=== PATIENT | male | born 1995 | race Caucasian/White ===

== ENCOUNTER 2019-03-08 14:56 | Emergency (ER) | payer MEDICAID, OTHER ==
[2019-03-08] MEDS ORDERED: Albuterol Nebulizer 2.5mg/3mL HHN ONE (15:18)
[2019-03-08] MEDS: Albuterol Nebulizer 2.5mg/3mL HHN ONE (15:20)
--- NOTE | 2019-03-08 17:31 | ED Physician Chart ---
ED Chief Complaint/HPI - Patient Information Date Seen:: 03/08/19 Time Seen:: 15:30 Chief Complaint:: wheezing History of Present Illness:: chronic episodic breakthrough Allergies:: Allergies Allergy/AdvReac Type Severity Reaction Status Date / Time No Known Allergies Allergy Verified 03/08/19 15:07 Vitals:: Vital Signs - 8 hr 03/08/19 03/08/19 15:07 15:21 Temp 96.6 F HR 125 110 RR 16 18 BP 133/86 O2 Sat % 94 95 Historian:: Patient ED Review of Systems - Review of Systems General/Constitutional: No fever Skin: No skin lesions Head: No headache Eyes: No loss of vision ENT: No earache Neck: No neck pain Cardio Vascular: No chest pain Pulmonary: Cough, Sputum, Wheezing GI: No nausea, No vomiting G/U: No dysuria Musculoskeletal: No bone or joint pain Endocrine: No polyuria Psychiatric: No prior psych history Hematopoietic: No bruising Allergic/Immuno: No urticaria Neurological: No syncope ED Past Medical History - Past Medical History Past Medical History: Asthma/COPD Family History: None Social History: Non Smoker Psychiatricy History: None Family Medical History - Family Member Mother History Unknown: Yes ED Physical Exam - Physical Examination General/Constitutional: Awake, Well-developed, well-nourished, Alert, No distress, Non-toxic appearing, Ambulatory Head: Atraumatic Eyes: Lids, conjuctiva normal Skin: Nl inspection ENMT: External ears, nose nl Neck: Nontender Respiratory: Nl effort/Exclusion (wheezing 1/5 good movement), No Wheeze/Rhonchi /Rales Cardio Vascular: RRR, No murmur, gallop, rubs, NL S1 S2 GI: No tenderness/rebounding/guarding : No CVA tenderness Extremities: No tenderness or effusion Neuro/Psych: Alert/oriented Misc: Normal back ED Labs/Radiology/EKG Results - Lab Results Results: cxr good ED Septic Shock - . Is Septic Shock (SBP<90, OR Lactate>4 mmol\L) present?: No - <6hrs of presentation: Vital Signs: Vital Signs - 8 hr 03/08/19 03/08/19 15:07 15:21 Temp 96.6 F HR 125 110 RR 16 18 BP 133/86 O2 Sat % 94 95 ED Reassessment (Disposition) - Reassessment Reassessment Condition:: Improved (breathing treatment rx albuteral r5 levaquin 750 ck pharmacist interaction med and long q t syndrome proper inhaler technique ) - Aftercare/Follow up Instructions Aftercare/Follow-Up Instructions:: Counseled pt & family regarding lab results/ diagnosis & need follow up - Patient Disposition Discharge/Transfer:: Home Condition at Disposition:: Stable (pmd follow up), Improved
--- NOTE | 2019-03-09 08:03 | Diagnostic Imaging Report ---
CHEST X-RAY: AP view INDICATION: Shortness of breath COMPARISON: None FINDINGS: There is mild elevation of right hemidiaphragm. There is no focal consolidation or pleural effusions The heart is normal in size. The osseous structures demonstrate no acute abnormalities. IMPRESSION: No focal acute pulmonary process.
== END 2019-03-08 16:26 | disposition home or self-care (01) ==
LOC: ER 14:56
DX: R06.2 Wheezing (principal); R05 Cough; R09.3 Abnormal sputum; J44.9 Chronic obstructive pulmonary disease, unspecified
CPT/HCPCS: 71045-TC; 94640; J7613; Z7502